=== PATIENT | female | born 1995 ===

== ENCOUNTER → 2018-02-08 21:11 | Outpatient (REF) | payer OTHER, SELFPAY ==
[2018-02-08 22:00] LABS: Alanine Aminotransferase 25 IU/L (9-52); Albumin 4.1 g/dL (3.5-5.0); Albumin Globulin Ratio 1.4 (1.0-2.8); Alkaline Phosphatase 89 U/L (38-126); Aspartate Aminotransferase 22 IU/L (14-36); BUN Creatinine Ratio 17.1 (6-22); Bilirubin Total 0.3 mg/dL (0.2-1.3); Blood Urea Nitrogen 12 mg/dL (7-17); Calcium 9.7 mg/dL (8.4-10.2); Carbon Dioxide 28 mmol/L (22-32); Chloride 102 mmol/L (98-107); Cholesterol 214 mg/dL (140-199); Estimated Glomerular Filt Rate > 60.0 mL/min (>60); Glucose 84 mg/dL (70-100); HDL Cholesterol 46 mg/dL (40-60); HEMOLYSIS < 15 (0-50); LDL Cholesterol Calculated 150 mg/dL (<100); Potassium 4.4 mmol/L (3.4-5.1); Sodium 140 mmol/L (137-145); Total Protein 7.1 g/dL (6.3-8.2); Triglycerides 88 mg/dL (35-150)
[2018-02-09 00:45] LABS: Hemoglobin A1C% w Est Avg Glu 5.6 % (4.0-6.0)
[2018-02-09 01:16] LABS: Free T3, Triiodothyronine Free 3.55 pg/mL (2.77-5.27); Free T4, Direct Thyroxine 0.89 ng/dL (0.78-2.19)
[2018-02-09 01:29] LABS: Thyroid Stimulating Hormone 0.49 uIU/mL (0.47-4.68)
== END ==
LOC: LAB 21:11
PROVIDERS: Visit Provider Naturopath
DX: F50.81 Binge eating disorder (principal); Z13.89 Encounter for screening for other disorder
CPT/HCPCS: 80053; 80061; 83036; 84439; 84443; 84481